=== PATIENT | female | born 1990 | race Caucasian/White ===

== ENCOUNTER 2019-01-19 09:02 | Emergency (ER) | payer BC, MEDICAID ==
[2019-01-19 11:21] LABS: ADD MAN DIFF? NO
[2019-01-19 11:23] LABS: WHITE BLOOD COUNT 7.1 10^3/ul (4.8-10.8)
[2019-01-19 11:23] LABS: BASOPHILS % 0.6 % (0.0-2.0); EOSINOPHILS # 0.1 10^3/ul (0.0-0.5); EOSINOPHILS % 1.1 % (0.0-7.0); HEMOGLOBIN 13.3 g/dl (12.0-16.0); LYMPHOCYTES # 1.4 10^3/ul (0.8-2.9); LYMPHOCYTES % 20.2 % (15.0-51.0); MEAN CORPUSCULAR HEMOGLOBIN 28.2 pg (29.0-33.0); MEAN CORPUSCULAR HGB CONC 32.4 g/dl (32.0-37.0); MEAN CORPUSCULAR VOLUME 86.9 fl (82.0-101.0); MEAN PLATELET VOLUME 11.7 fl (7.4-10.4); MONOCYTE # 0.3 10^3/ul (0.3-0.9); MONOCYTES % 4.5 % (0.0-11.0); NEUTROPHIL # 5.2 10^3/ul (1.6-7.5); NEUTROPHILS % 73.3 % (39.0-77.0); PLATELET COUNT 195 10^3/UL (140-415); RED BLOOD COUNT 4.72 10^6/ul (4.20-5.40); RED CELL DISTRIBUTION WIDTH 13.2 % (11.5-14.5)
[2019-01-19 11:45] LABS: ALANINE AMINOTRANSFERASE 7 IU/L (13-69); ALBUMIN 4.8 g/dl (3.3-4.9); ALKALINE PHOSPHATASE 70 IU/L (42-121); ASPARTATE AMINO TRANSFERASE 14 IU/L (15-46); BILIRUBIN,INDIRECT 0.3 mg/dl (0-1.1); BILIRUBIN,TOTAL 0.3 mg/dl (0.2-1.3); TOTAL PROTEIN 8.2 g/dl (6.1-8.1)
[2019-01-19 11:49] LABS: ALANINE AMINOTRANSFERASE 14 IU/L (13-69); ALBUMIN 4.8 g/dl (3.3-4.9); ALBUMIN/GLOBULIN RATIO 1.54; ALKALINE PHOSPHATASE 67 IU/L (42-121); ANION GAP 12 (5-13); ASPARTATE AMINO TRANSFERASE 13 IU/L (15-46); BILIRUBIN,INDIRECT 0.3 mg/dl (0-1.1); BILIRUBIN,TOTAL 0.3 mg/dl (0.2-1.3); BLOOD UREA NITROGEN 7 mg/dl (7-20); CALCIUM 9.7 mg/dl (8.4-10.2); CARBON DIOXIDE 25 mmol/L (21-31); CHLORIDE 105 mmol/L (97-110); CREATININE 0.52 mg/dl (0.44-1.00); Estimated GFR > 60 mL/min (>60); GLUCOSE 138 mg/dl (70-220); POTASSIUM 3.7 mmol/L (3.5-5.1); SODIUM 142 mmol/L (135-144); TOTAL PROTEIN 7.9 g/dl (6.1-8.1)
[2019-01-19 12:31] LABS: FREE THYROXINE INDEX (Calc) 2.25 ug/ml (0.65-3.89); T3 UPTAKE 33.6 % (23.5-40.5); T4 (THYROXINE) 6.7 ug/dl (5.5-11.0)
== END 2019-01-19 13:28 | disposition home or self-care (01) ==
LOC: FTE 13:28
DX: R00.2 Palpitations (principal); Z87.891 Personal history of nicotine dependence
CPT/HCPCS: 71046; 80053; 80076; 84436; 84443; 84479; 85025; 93005; 99285-25